=== PATIENT | female | born 1975 | race Two or more races ===

== ENCOUNTER 2016-05-04 16:41 | Emergency (ER) | payer OTHER ==
--- NOTE | 2016-05-04 17:28 | RAD ---
Name: JEAN EDUARDO Exam: Two-view chest Comparison: 01/13/2015 Clinical history: Cough Findings: 2 views of the chest are submitted. Heart, mediastinum and hilar structures are normal. There is no failure, infiltrate, pleural effusion or pneumothorax. There is a mild reverse S-shaped scoliosis of the spine. Gallbladder is surgically absent. Impression: No acute cardiopulmonary process
[2016-05-04] MEDS ORDERED: PREDNISONE 20 MG TABLET ONE (18:28)
== END 2016-05-04 18:43 | disposition home or self-care (01) ==
LOC: ED 16:41
DX: J06.9 Acute upper respiratory infection, unspecified (principal); J45.909 Unspecified asthma, uncomplicated; F17.210 Nicotine dependence, cigarettes, uncomplicated; E66.9 Obesity, unspecified